=== PATIENT | male | born 1995 | race Caucasian/White ===

== ENCOUNTER 2022-11-17 17:08 | Emergency (ER) | payer BC ==
[2022-11-17] MEDS ORDERED: Penicillin G Benzathine 1,200,000 Units/2 ML Syringe IM ONE (17:39)
[2022-11-17] MEDS ORDERED: cefTRIAXone 500 MG in Lidocaine 1% 1 ML IM ONE (17:40)
[2022-11-17] MEDS ORDERED: Doxycycline 100 MG Cap PO ONE (17:40)
[2022-11-17 19:17] LABS: C. TRACHOMATIS BY PCR NOT DETECTED; N. GONORRHOEAE BY PCR NOT DETECTED
== END 2022-11-17 18:18 | disposition home or self-care (01) ==
LOC: MW.ED 17:08 → EDBD 17:08 → MW.ED 18:18
DX: L01.00 Impetigo, unspecified (principal); A53.9 Syphilis, unspecified; Z72.0 Tobacco use
CPT/HCPCS: 36415; 86592; 86695; 86696; 87389; 87491; 87591; 96372; 99283; A9270; J0561; J0696; J3490